=== PATIENT | female | born 1985 | race Hispanic/Latino ===

== ENCOUNTER 2025-01-09 08:55 | Emergency (ER) | payer OTHER, BC, SELFPAY ==
[2025-01-09 08:58] VITALS: BP 138/86
--- NOTE | 2025-01-09 10:56 | ED.GENMED ---
ED Provider Triage
<Zana Bellamy MD, Resident - Last Filed: 01/09/25 14:59>
-
Patient seen by provider in Triage?: Seen in Triage
History of Present Illness
<Zana Bellamy MD, Resident - Last Filed: 01/09/25 14:59>
General
Chief Complaint: Back Pain
Source: patient
Exam Limitations: other (severe bilateral lower back pain)
Time Seen by Provider: 01/09/25 10:22
History of Present Illness
History of Present Illness:
Pt is a 39 year old female who presents for severe bilateral lower back pain,started at 6:30 this morning after getting up to use the bathroom. Described as sharp, non radiating, aggravated on elevating legs and lying down. She has PMH for chronic
back pain diagnosed 2 years ago d/t herniated disc. She sees a pain managment specialist in [facility] and is currently being treated with diclofenac sodium. Recieved a spinal epidural corticosteroid injection a couple of weeks ago. No fever, chills,
N/V/D, preceding trauma, numbness, weakness, bowel/ bladder changes, chest pain, recent surgery.
Past History
<Zana Bellamy MD, Resident - Last Filed: 01/09/25 14:59>
Past History
Patient has exhibited threatening behavior?: No
Social History
Tobacco: Non-smoker
Alcohol: Occasional
Drug: None
Personal: Single
Living: with family (daughter)
Review of Systems
<Zana Bellamy MD, Resident - Last Filed: 01/09/25 14:59>
Review of Systems
All Other Systems: ROS reviewed and negative except as documented in HPI and ROS
Constitutional: Denies weight loss or fatigue
EENT: Denies sore throat
Respiratory: Denies cough
Cardiac: Denies diaphoresis
ABD/GI: Denies abdominal pain, vomiting or diarrhea
: Denies flank pain or difficulty voiding
Musculoskeletal: Reports no symptoms
Neurological: Reports no symptoms
Phy Exam
<Zana Bellamy MD, Resident - Last Filed: 01/09/25 14:59>
General Physical Exam
General Presentation: well appearing and mild distress
General Skin: warm and dry
General Habitus: obese
General Mental: alert
Cardiovascular Exam
Cardiovascular Exam: regular rate/rhythm, no edema, no JVD and no murmur
Pulmonary Exam
Pulmonary Exam: lungs clear and no respiratory distress
Gastrointestinal Exam
Gastrointestinal Exam: normal bowel sounds, non tender, soft and non distended
Neurological Exam
Neurological Exam: alert, oriented x3, no motor deficits, normal reflexs, no sensory deficits and speech normal
Musculoskeletal Exam
Musculoskeletal Exam: back pain (Paravertebral tenderness bilaterally at lumbar area, No midline tenderness, limited range of motion due to pain, straight leg test not performed due to pain, )
Psychiatric Exam
Psychiatric Exam: normal mood/affect
Course
<Zana Bellamy MD, Resident - Last Filed: 01/09/25 14:59>
Orders/Labs/Results
Orders:
Orders
01/09/25 10:52
Ketorolac [Toradol] 15 mg IM NOW STA
diazePAM [Valium Injection] 5 mg IM NOW STA
01/09/25 11:01
HCG, Urine Qualitative Screen Urgent
Date Specimen was Collected: 01/09/25
Time Specimen was Collected: 10:58
Comment: ADD
Urinalysis Reflex To Culture Urgent
Date Specimen was Collected: 01/09/25
Time Specimen was Collected: 10:58
Urine Microscopic Reflex Cult Urgent
01/09/25 11:22
Test Result ONCE
01/09/25 12:40
Add On- LAB Urgent
Tests Added?: urine preg
Abnormal Lab Results
01/09/25
11:01
Ur Occult Blood Reflex 4+ A
(Negative)
Urine Bacteria (Reflex) Few A
(Negative)
Urine Glucose 3+ A
(Negative)
Urine Albumin (Reflex) 2+ A
(Neg - Trace)
Vital Signs
Initial and Last Documented VS:
Initial Vital Signs
Temp Pulse Resp BP Pulse Ox
98.8 F 94 16 138/86 99
01/09/25 08:58 01/09/25 08:58 01/09/25 08:58 01/09/25 08:58 01/09/25 08:58
Last Documented Vital Signs
Temp Pulse Resp BP Pulse Ox
98.2 F 75 14 124/75 98
01/09/25 12:56 01/09/25 12:56 01/09/25 12:56 01/09/25 12:56 01/09/25 12:56
<Melba Driscoll MD - Last Filed: 01/09/25 14:00>
Orders/Labs/Results
Orders:
Orders
01/09/25 10:52
Ketorolac [Toradol] 15 mg IM NOW STA
diazePAM [Valium Injection] 5 mg IM NOW STA
01/09/25 11:01
HCG, Urine Qualitative Screen Urgent
Date Specimen was Collected: 01/09/25
Time Specimen was Collected: 10:58
Comment: ADD
Urinalysis Reflex To Culture Urgent
Date Specimen was Collected: 01/09/25
Time Specimen was Collected: 10:58
Urine Microscopic Reflex Cult Urgent
01/09/25 11:22
Test Result ONCE
01/09/25 12:40
Add On- LAB Urgent
Tests Added?: urine preg
Abnormal Lab Results
01/09/25
11:01
Ur Occult Blood Reflex 4+ A
(Negative)
Urine Bacteria (Reflex) Few A
(Negative)
Urine Glucose 3+ A
(Negative)
Urine Albumin (Reflex) 2+ A
(Neg - Trace)
Vital Signs
Initial and Last Documented VS:
Initial Vital Signs
Temp Pulse Resp BP Pulse Ox
98.8 F 94 16 138/86 99
01/09/25 08:58 01/09/25 08:58 01/09/25 08:58 01/09/25 08:58 01/09/25 08:58
Last Documented Vital Signs
Temp Pulse Resp BP Pulse Ox
98.2 F 75 14 124/75 98
01/09/25 12:56 01/09/25 12:56 01/09/25 12:56 01/09/25 12:56 01/09/25 12:56
<Zana Bellamy MD, Resident - Last Filed: 01/09/25 14:59>
MDM/Problems Addressed
Differential Diagnosis Includes:
Musculoskeletal strain, degenerative spinal disease, fracture, nephrolithiasis
MDM/Problems Addressed:
39 Year old female with severe bilateral lower back pain with paravertebral tenderness, limited ROM on physical exam. Pending UA and Bhcg to check for blood in urine for nephrolithiasis or pathology, . Ordered toradol 15 mg for
pain,IV valium 5 mg for muscle relaxant. Will not order X ray of spine due to lack of red flag symptoms.
<Zana Bellamy MD, Resident - Last Filed: 01/09/25 14:59>
*Pulse Oximetry
SaO2: 99
Oxygen Mode of Delivery: Room air
Patient hypoxic: no
*Critical Care Note
Total Time (30-74mins, 75-104mins- exclusive of procedures): Not Applicable
<Zana Bellamy MD, Resident - Last Filed: 01/09/25 14:59>
Update Note
Update Note:
Patients pain adequately controlled on medication. Will discharge on cyclobenzaprine 10 mg.
ED Attending Note
<Zana Bellamy MD, Resident - Last Filed: 01/09/25 14:59>
-
Portions of this chart may have been created with voice recognition software.� Occasional wrong word or��sound alike� substitutions may have occurred due to the inherent limitations of voice recognition software.
<Melba Driscoll MD - Last Filed: 01/09/25 14:00>
ED Attending Note
Patient seen and examined by attending physician: Yes
I performed a history and physical exam of patient and discussed management with resident, I reviewed resident's note and agree with documented findings and plan of care.: Yes
ED Attending Note:
39-year-old female presents emergency department with complaints of bilateral lower back pain that started approximately 630 this morning when she got up to walk to the bathroom. Pain is 'sharp' and sometimes will radiate to the left buttock area
particularly with certain positions. Patient has a longstanding history of back pain related to herniated disc. She is currently under the care of a physical therapist and chiropractor. Her last epidural injection was over 3 months ago. She
states that she has been on steroids recently as well as Lyrica with minimal relief of symptoms. She denies recent trauma or fall, fever, chills, numbness, tingling, perianal anesthesia, bowel or bladder incontinence, abdominal pain, weakness, or
other complaints. On exam, patient pleasant awake and alert. Abdomen soft and nontender. 2+ patellar reflexes bilaterally, motor 5 out of 5, sensory intact. Abdomen soft and nontender. Back without tenderness to palpation in midline area.,
Mild paravertebral tenderness, distractible. Note exam done status post medications administered here. Patient will get a ride home given meds here would not make her eligible to drive herself. Long discussion with patient regarding importance of
follow-up and reasons return to the ER. Appears to be likely musculoskeletal highly doubt cauda equina or other acute neurological or infectious event given lack of red flag findings on exam or history.
Discharge Plan
Departure
Patient Disposition: Home (Routine Discharge)
Date of Disposition: 01/09/25
Time of Disposition: 13:58
Patient with high blood pressure during this ER visit?: Yes
Discharge Problem:
Back pain
Instructions: Low Back Pain (DC), BLOOD PRESSURE
Prescriptions:
New
cyclobenzaprine 10 mg tablet
10 mg PO BID PRN (Reason: pain or spasm) Qty: 13 0RF
Referrals:
Faizan Chapman MD [Family Provider, Internal Medicine] - Tomorrow
Activity Restrictions/Additional Instructions:
IF YOU DEVELOP INCREASING OR NEW PAIN, ABDOMINAL PAIN, VOMITING, NUMBNESS, WEAKNESS, DIFFICULTY WALKING, FEVER, SWELLING, INCONTINENCE, OR OTHER WORRISOME SIGNS, PLEASE RETURN TO THE ER IMMEDIATELY!
Interventions
Interventions:
*Risk Screen - Suicide Last Done: 01/09/25 08:58
*General Assessment Last Done: 01/09/25 08:58
*Neglect/Abuse Screening Last Done: 01/09/25 08:58
*Nursing Disposition Last Done: 01/09/25 14:02
ED-Musculoskeletal Assessment Last Done: 01/09/25 11:08
Discharge Date and Time
Discharge Date/Time: 01/09/25 14:06
Print Language: ROMANIAN
[2025-01-09] MEDS: TORADOL 15 MG IM (11:03)
[2025-01-09] MEDS: VALIUM INJECTION 5 MG IM (11:04)
[2025-01-09 11:23] LABS: Urine Character Clear (Clear)
[2025-01-09 11:57] LABS: Urine Squamous Cell >30 /LPF (Few)
[2025-01-09 11:58] LABS: Urine Red Blood Cell 0-2 /HPF (0-2)
[2025-01-09 12:56] VITALS: BP 124/75
[2025-01-09 12:57] LABS: HCG, Urine Qualitative Screen Negative
== END 2025-01-09 14:06 | disposition home or self-care (01) ==
LOC: EMR 08:55
PROVIDERS: EMERGENCY PHYSICIAN Emergency Medicine; FAMILY PHYSICIAN Internal Medicine
DX: M54.50 Low back pain, unspecified (principal); G89.29 Other chronic pain; R03.0 Elevated blood-pressure reading, without diagnosis of hypertension
CPT/HCPCS: 99284; 96372 ×2; 81003; 81015; 81025

== ENCOUNTER 2025-02-17 22:23 | Emergency (ER) | payer OTHER, BC, SELFPAY ==
[2025-02-17 22:27] VITALS: BP 146/101
--- NOTE | 2025-02-18 01:40 | ED.GENMED ---
History of Present Illness
General
Chief Complaint: Musculo-Skeletal Complaint
Source: patient
Exam Limitations: none
Time Seen by Provider: 02/18/25 00:50
Nursing documentation reviewed up to this point in time: agreed with
History of Present Illness
History of Present Illness:
Patient is a 39-year-old female who complains of pain pain to right heel. Patient reports yesterday she was walking a lot on a track and felt pain after. She denies any actual injury or twisting. Denies any swelling
Past History
Past History
Patient has exhibited threatening behavior?: No
Social History
Tobacco: Non-smoker
Alcohol: Occasional
Drug: None
Personal: Single
Living: with family (daughter)
Phy Exam
General Physical Exam
General Presentation: no apparent distress
General age: appears stated age
General Skin: warm and dry
General Habitus: normal
General Mental: alert
General Hydration: appears well hydrated
Musculoskeletal Exam
Musculoskeletal Exam: other (mild tender along the heel no swelling /redness/ecchymosis no calf tenderness no bony foot tenderness )
Skin Exam
Skin Exam: normal color and warm/dry
Psychiatric Exam
Psychiatric Exam: normal mood/affect
Course
Orders/Labs/Results
Orders:
Orders
02/17/25 22:24
Calcaneus, Right 2 View [CR Heel/os Calcis - Right 2 Vw] Urgent
Comment:
Reason For Exam: pain
02/18/25 01:40
Vital Signs- Treatment ONCE
Frequency: Once
Vital Signs
Initial and Last Documented VS:
Initial Vital Signs
Temp Pulse Resp BP Pulse Ox
98.4 F 110 16 146/101 95
02/17/25 22:27 02/17/25 22:27 02/17/25 22:27 02/17/25 22:27 02/17/25 22:27
Last Documented Vital Signs
Temp Pulse Resp BP Pulse Ox
98.4 F 110 16 146/101 95
02/17/25 22:27 02/17/25 22:27 02/17/25 22:27 02/17/25 22:27 02/17/25 22:27
MDM/Problems Addressed
Differential Diagnosis Includes:
Not limited to sprain strain fracture
MDM/Problems Addressed:
Symptoms are consistent possible overuse injury however no obvious fracture discussed ice elevation Motrin. no evidence of infection.
*Radiology
Radiology exam reviewed: radiology read reviewed
*Pulse Oximetry
SaO2: 95
Oxygen Mode of Delivery: Room air
Patient hypoxic: no
*Critical Care Note
Total Time (30-74mins, 75-104mins- exclusive of procedures): Not Applicable
ED Attending Note
-
Portions of this chart may have been created with voice recognition software.� Occasional wrong word or��sound alike� substitutions may have occurred due to the inherent limitations of voice recognition software.
Discharge Plan
Departure
Patient Disposition: Home (Routine Discharge)
Date of Disposition: 02/18/25
Time of Disposition: 01:43
Patient with high blood pressure during this ER visit?: Yes
Condition: Fair
Covid-19: Not Applicable
Discharge Problem:
Heel pain
Instructions: Muscle and Bone Pain (DC), Using Cold for Pain
Prescriptions:
No Action
cyclobenzaprine 10 mg tablet
10 mg PO BID PRN (Reason: pain or spasm) Qty: 13 0RF
Referrals:
Faizan Chapman MD [Family Provider, Internal Medicine]
Activity Restrictions/Additional Instructions:
As discussed please ice the affected area for the next 24 hours 20 minutes at a time several times a day. Ibuprofen as needed
Follow-up with family doctor in the next several days return if any worsening symptoms
Interventions
Interventions:
*Risk Screen - Suicide Last Done: 02/17/25 22:27
*General Assessment Last Done: 02/17/25 22:27
*Neglect/Abuse Screening Last Done: 02/17/25 22:27
ED-Musculoskeletal Assessment Last Done: 02/18/25 01:00
Discharge Date and Time
Print Language: GEORGIAN
[2025-02-18 01:47] VITALS: BP 137/98
== END 2025-02-18 01:53 | disposition home or self-care (01) ==
LOC: EMR 22:23
PROVIDERS: EMERGENCY PHYSICIAN Student in an Organized Health Care Education/Training Program; FAMILY PHYSICIAN Internal Medicine
DX: M79.671 Pain in right foot (principal)
CPT/HCPCS: 99283; 73650